=== PATIENT | male | born 1995 | race Caucasian/White ===

== ENCOUNTER 2017-12-08 18:09 | Emergency (ER) | payer BC ==
[~2017-12-08 18:09] MED LIST: AMO500 PO; ASPI-1471 PO; ATOR20TA65 PO; DONE10TA38 PO; HYDR-385 PO; HYDR-4309 PO; HYDR50CA48 PO; IBUP400T13 PO; IBUP600T22 PO; IBUP800T37 PO; LEVE750T74 PO; LEVO50TA86 PO; LISI-362 PO; LOR5 PO; LOR5/325 PO; LORA-1455 PO; LORA-1458 PO; ONDA4TAB PO; PER PO; RANI-324 PO; SEIZURE MED
--- NOTE | 2017-12-08 18:13 | ER Report ---
History and Physical Time Seen By MD: 18:12 HPI/ROS CHIEF COMPLAINT: Crush injury of right hand HISTORY OF PRESENT ILLNESS: 22-year-old male patient presents to emergency room with complaint of a crush injury to the right hand. Patient states that he was working, building a log cabin, and had a log roll often crush his hand. Patient states that he has pain in the fourth and fifth metacarpal region. States that he is had some tingling in the hand, but his been intermittent. Patient states this occurred on Monday. Patient states he is working [place] was unable to get healthcare at that time. REVIEW OF SYSTEMS: Respiratory: No cough, no dyspnea. Cardiovascular: No chest pain, no palpitations. Gastrointestinal: No vomiting, no abdominal pain. Musculoskeletal: As noted above Allergies: Coded Allergies: Sulfa (Sulfonamide Antibiotics) (Verified Allergy, Mild, 11/01/16) Home Meds Active Scripts Lorazepam (ATIVAN) 2 Mg Tablet, 2 MG PO BID Y for SEIZURE, #10 TAB Prov:CHRISTELLE KAY [facility] 06/01/17 Hydrocodone Bit/Acetaminophen (HYDROCODON-ACETAMINOPHEN 5-325) 1 Each Tablet, 1 EACH PO Q4-6H Y for PAIN, #8 TAB Prov:CHRISTELLE KAY [facility] 06/01/17 Hydroxyzine Pamoate (HYDROXYZINE PAMOATE) 50 Mg Capsule, 50 MG PO QHS Y for INSOMNIA, #12 CAPSULE Prov:CHRISTELLE KAY [facility] 11/01/16 Hydrocodone Bit/Acetaminophen (NORCO 5-325 TABLET) 1 Each Tablet, 1 EACH PO Q4- 6H Y for PAIN, #12 TAB Prov:CHRISTELLE KAY [facility] 02/20/16 Lorazepam (ATIVAN) 0.5 Mg Tablet, 0.5 MG PO Q4-6H Y for ANXIETY, #10 TAB Prov:CHRISTELLE KAY [facility] 02/20/16 Past Medical/Surgical History Patient has a past medical history of seizures, asthma, fracture, marijuana use. Patient has a surgical history of cardiac surgery when he was a child. Hx Smoking: No Smoking Status: Never Smoker Exposure to Second Hand Smoke?: Yes Hx Substance Use Disorder: Yes (POT) Hx Alcohol Use: No Constitutional Vital Sign - Last 24 Hours 12/08/17 12/08/17 18:12 18:32 Temp 98.5 Pulse 135 93 Resp 20 B/P (MAP) 134/94 Pulse Ox 89 Physical Exam General Appearance: The patient is alert, has no immediate need for airway protection and no current signs of toxicity. ENT: Tympanic membranes are pearly-harman, auditory canals are patent. Respiratory: Chest is non tender, lungs are clear to auscultation. Cardiac: regular rate and rhythm Musculoskeletal: Neck: Neck is supple and non tender. Extremities have full range of motion and are non tender. Patient has swelling to the fifth metacarpal, pain to the midshaft of the fifth metacarpal. Skin: No rashes or lesions. DIFFERENTIAL DIAGNOSIS: After history and physical exam differential diagnosis was considered for contusion, fracture, sprain. Medical Decision Making EKG/Imaging Imaging INDICATION: . Crush injury DATE: 12/08/2017 6:36 PM. TECHNIQUE: HAND COMPLETE RIGHT COMPARISON: None FINDINGS: Normal alignment without evidence of acute fracture or dislocation. Mild angulation of the fifth metacarpal could potentially reflect an old, healed injury. IMPRESSION: No evidence of acute fracture or dislocation. Report Dictated By: Biju Becerra MD at 12/08/2017 6:36 PM Report E-Signed By: Biju Becerra MD at 12/08/2017 6:38 PM ED Course/Re-evaluation ED Course Patient was admitted and examined, history and physical were obtained. Differential diagnoses were considered. On examination patient has tenderness to the right fifth metacarpal, does have swelling there. An x-ray of the right hand was done which was negative. I discussed the findings with the patient and his family. We did place the patient in a Colles' splint. Patient tolerated procedure well. I would like him to wear them throughout the weekend. He may take it off on Monday. I will like him to ice through the. He states Tylenol or ibuprofen as if pain. Patient verbalized understanding and agreement. Procedure: Splint placement. A Colles' splint was applied. After application of the splint I returned and re -examined the patient. The splint was adequately immobilizing the joint and distal to the splint the patient's circulation and sensation was intact. Decision to Disposition Date: Dec 08, 2017 Decision to Disposition Time: 18:45 Depart Departure Latest Vital Signs Vital Signs Date Time Temp Pulse Resp B/P (MAP) Pulse Ox O2 Delivery O2 Flow Rate FiO2 2/16/18 18:32 93 12/08/17 18:12 98.5 20 134/94 89 Impression: Primary Impression: Crush injury of hand Condition: Improved Disposition: HOME OR SELF-CARE Patient Instructions: Crush Injury (ED) Additional Instructions: Ice hand 2-3 times a day for 10-15 minutes. Wear the splint 23/24 hours a day throughout the weekend. Take Tylenol or Ibuprofen as needed for pain. Follow up with your primary care provider in the next week. Return to the ER if condition worsens. Problem Qualifiers Primary Impression: Crush injury of hand Encounter type: initial encounter Laterality: right Qualified Codes: S67.21XA - Crushing injury of right hand, initial encounter CHRISTELLE KAY Dec 08, 2017 18:12
--- NOTE | 2017-12-08 18:42 | RADIOLOGY IMAGING REPORT ---
FACILITY: [facility] [place] PATIENT NAME: Martine Cornejo : 1995 MR: [id number] V: [id number] EXAM DATE: ORDERING PHYSICIAN: CHRISTELLE KAY TECHNOLOGIST: Location: [facility] - [place] Patient: Martine Cornejo : 1995 Visit/Account:[id number] Date of Sevice: 12/08/2017 INDICATION: . Crush injury DATE: 12/08/2017 6:36 PM. TECHNIQUE: HAND COMPLETE RIGHT COMPARISON: None FINDINGS: Normal alignment without evidence of acute fracture or dislocation. Mild angulation of the fifth metacarpal could potentially reflect an old, healed injury. IMPRESSION: No evidence of acute fracture or dislocation. Report Dictated By: Biju Becerra MD at 12/08/2017 6:36 PM Report E-Signed By: Biju Becerra MD at 12/08/2017 6:38 PM WSN:[id number]
[2017-12-08 18:50] VITALS: BP 140/86
== END 2017-12-08 18:51 | disposition home or self-care (01) ==
LOC: ER 18:29
DX: S67.21XA Crushing injury of right hand, initial encounter (principal); W23.1XXA Caught, crushed, jammed, or pinched between stationary objects, initial encounter
CPT/HCPCS: 73130; 99283; L3763